=== PATIENT | female | born 1990 | race Two or more races ===

== ENCOUNTER 2024-03-01 08:08 | Emergency (ER) | payer OTHER ==
[2024-03-01 08:28] VITALS: BP 148/96; PULSE 97; RESP 20; TEMP 97.7; BMI 25.1
== END 2024-03-01 09:37 | disposition home or self-care (01) ==
LOC: JERFT 08:08
DX: R19.03 Right lower quadrant abdominal swelling, mass and lump (principal)
CPT/HCPCS: 99282-25